=== PATIENT | male | born 1975 | race Caucasian/White ===

== ENCOUNTER 2019-10-09 11:58 | Outpatient (CLI) | payer BC, SELFPAY ==
[2019-10-09 12:37] LABS: Creatinine Urine 46.56 mg/dL (40-278); MALB Creatinine Ratio 11.3 mg/g (0-30); Microalbumin Urine Random 5.3 mg/L
[2019-10-09 13:26] LABS: Alanine Aminotransferase 39 U/L (16-63); Alkaline Phosphatase 66 U/L (46-116); Anion Gap 11.9 mmol/L (7-16); Aspartate Amino Transferase 17 U/L (15-37); Bilirubin,Total 0.4 mg/dL (0.00-1.00); Blood Urea Nitrogen 13 mg/dL (7-18); Calcium 9.3 mg/dL (8.5-10.1); Carbon Dioxide 30 mmol/L (21-32); Chloride 101 mmol/L (98-108); Estimated Glomerular Filt Rate > 60; Glucose 322 mg/dL (70-99); Osmolality Calculated 298 mOsm/kg (285-295); Potassium 4.9 mmol/L (3.5-5.1); Sodium 138 mmol/L (136-145); Total Protein 7.3 g/dL (6.4-8.2)
[2019-10-09 14:08] LABS: Hemoglobin A1C 8.7 % (<5.7)
== END 2019-10-09 11:59 | disposition home or self-care (01) ==
LOC: CHSLAB 12:01
PROVIDERS: PCP Nurse Practitioner Family; Visit Provider Nurse Practitioner Family
DX: E11.9 Type 2 diabetes mellitus without complications (principal)
CPT/HCPCS: 36415; 80053; 82043; 83036

== ENCOUNTER 2021-12-28 13:41 | Outpatient (CLI) | payer OTHER, SELFPAY ==
[2021-12-28 13:58] LABS: Basophils Absolute Auto 0.06 K/mm3 (0.00-0.10); Basophils Percent Auto 0.6 % (0.0-1.0); Eosinophils Absolute Auto 0.26 K/mm3 (0.02-0.50); Eosinophils Percent Auto 2.7 % (1.0-6.0); Hematocrit 44.3 % (40.0-54.0); Hemoglobin 14.5 g/dL (14.0-18.0); Immature Granulocyte Absolute 0.03 K/mm3 (0.00-0.00); Immature Granulocyte Percent A 0.3 % (0.0-0.0); Lymphocytes Absolute Auto 1.71 K/mm3 (1.10-4.50); Lymphocytes Percent Auto 17.5 % (18.0-42.0); Mean Corpuscular HGB Conc 32.7 g/dL (32.0-36.0); Mean Corpuscular Hemoglobin 27.8 pg (27.0-31.0); Mean Platelet Volume 9.7 fl (8.7-11.0); Monocytes Absolute Auto 0.75 K/mm3 (0.10-0.90); Monocytes Percent Auto 7.7 % (2.0-11.0); Neutrophils Percent Auto 71.2 % (50.0-70.0); Platelet Count Result 330 K/mm3 (150-420); Red Blood Count 5.21 M/mm3 (4.70-6.10); Red Cell Distribution Width 13.2 % (11.6-14.4); White Blood Count 9.8 K/mm3 (4.8-10.8)
[2021-12-28 14:06] LABS: MALB Creatinine Ratio 30.8 mg/g (0-30); Microalbumin Urine Random 27.8 mg/L
[2021-12-28 14:12] LABS: Alanine Aminotransferase 16 U/L (16-63); Alkaline Phosphatase 94 U/L (46-116); Anion Gap 8 mmol/L (8-16); Aspartate Amino Transferase < 10 U/L (15-37); Bilirubin,Total 0.8 mg/dL (0.00-1.00); Blood Urea Nitrogen 13 mg/dL (7-18); Calcium 8.9 mg/dL (8.5-10.1); Carbon Dioxide 29 mmol/L (21-32); Chloride 100 mmol/L (98-108); Cholesterol 217 mg/dL (0-200); Estimated Glomerular Filt Rate > 60; Glucose 328 mg/dL (70-99); HDL Direct 48 mg/dL (40-60); LDL Cholesterol Calculated 152 mg/dL (<130); Osmolality Calculated 297 mOsm/kg (285-295); Sodium 137 mmol/L (136-145); Total Protein 7.8 g/dL (6.4-8.2); Triglycerides 86 mg/dL (0-150)
== END 2021-12-28 13:42 | disposition home or self-care (01) ==
LOC: CHSLAB 13:44
PROVIDERS: PCP Nurse Practitioner Family; Visit Provider Nurse Practitioner Family
DX: E11.9 Type 2 diabetes mellitus without complications (principal)
CPT/HCPCS: 36415; 80053; 80061; 82043; 85025

== ENCOUNTER 2023-06-30 13:42 | Emergency (ER) | payer OTHER, SELFPAY ==
--- NOTE | ~2023-06-30 | XR_ITS ---
EXAMINATION: XR chest 1V portable DATE: 06/30/2023 14:36 INDICATION: Fever TECHNIQUE: frontal view of the chest was obtained. COMPARISON: None FINDINGS: The lungs are clear with no focal airspace opacities, pulmonary edema, pleural effusion or pneumothor ax. The cardiomediastinal silhouette is normal. Visualized bones and soft tissues are unremarkable. IMPRESSION: 1. Normal chest radiograph. Reviewed, dictated and finalized at location A. LITION WORKER IMPRESSION: 1. Normal chest radiograph.
[2023-06-30 13:52] VITALS: BP 130/75; PULSE 98; RESP 18; TEMP 36.5
[2023-06-30 14:29] LABS: Basophils Absolute Auto 0.08 K/mm3 (0.00-0.10); Basophils Percent Auto 0.8 % (0.0-1.0); Eosinophils Absolute Auto 0.41 K/mm3 (0.02-0.50); Eosinophils Percent Auto 4.1 % (1.0-6.0); Hematocrit 44.8 % (40.0-54.0); Hemoglobin 14.8 g/dL (14.0-18.0); Immature Granulocyte Absolute 0.05 K/mm3 (0.00-0.00); Immature Granulocyte Percent A 0.5 % (0.0-0.0); Lymphocytes Absolute Auto 1.35 K/mm3 (1.10-4.50); Lymphocytes Percent Auto 13.3 % (18.0-42.0); Mean Corpuscular Hemoglobin 27.7 pg (27.0-31.0); Mean Corpuscular Volume 83.9 fL (78.0-102.0); Mean Platelet Volume 9.5 fl (8.7-11.0); Monocytes Absolute Auto 0.63 K/mm3 (0.10-0.90); Monocytes Percent Auto 6.2 % (2.0-11.0); Neutrophils Absolute Auto 7.6 K/mm3 (1.7-7.2); Neutrophils Percent Auto 75.1 % (50.0-70.0); Platelet Count Result 290 K/mm3 (150-420); Red Blood Count 5.34 M/mm3 (4.70-6.10); Red Cell Distribution Width 13.2 % (11.6-14.4); White Blood Count 10.1 K/mm3 (4.8-10.8)
[2023-06-30 14:37] LABS: Glucose Point of Care 297 mg/dl (65-105)
[2023-06-30 14:46] LABS: Alanine Aminotransferase 17 U/L (16-63); Albumin Level 3.5 g/dL (3.4-5.0); Alkaline Phosphatase 74 U/L (46-116); Anion Gap 9 mmol/L (8-16); Aspartate Amino Transferase 10 U/L (15-37); Blood Urea Nitrogen 17 mg/dL (7-18); Calcium 8.5 mg/dL (8.5-10.1); Carbon Dioxide 28 mmol/L (21-32); Chloride 101 mmol/L (98-108); Estimated Glomerular Filt Rate 57; Glucose 295 mg/dL (70-99); Osmolality Calculated 298 mOsm/kg (285-295); Potassium 3.9 mmol/L (3.5-5.1); Sodium 138 mmol/L (136-145); Total Protein 7.5 g/dL (6.4-8.2)
[2023-06-30 15:00] VITALS: BP 120/75; PULSE 87; RESP 18; TEMP 36.7; O2SAT 100
[2023-06-30 15:05] LABS: SARS-CoV-2 RNA PCR Negative (Negative)
[2023-06-30 15:09] LABS: Influenza A QL RT-PCR Negative (Negative); Influenza B QL RT-PCR Negative (Negative); RSV RNA, RT-PCR Negative (Negative)
--- NOTE | 2023-06-30 15:10 | ED.FEVER ---
HPI - Fever General Chief Complaint: Fever Stated Complaint: cough Time Seen by Provider: 06/30/23 13:53 Source: patient and family Mode of arrival: ambulatory Limitations: no limitations History of Present Illness HPI Narrative: this is a 48-year-old male presents with what he describes as fevers subjective has not checked with a thermometer there is no shortness of breath no chest pain or abdominal pain no cough or congestion no chest pain no dysuria no flank pain no hematuria. Has no nausea vomiting no diarrhea constipation. Pertinent past history: diabetes Onset (ago): hour(s) Related Data Allergies Allergy/AdvReac Type Severity Reaction Status Date / Time No Known Allergies Allergy Verified 06/30/23 14:05 Review of Systems Review of Systems: All systems reviewed & are unremarkable except as noted in HPI and below PMFSH Past Medical History Medical History (Updated 06/30/23 @ 15:13 by Tony Nava MD) BMI 28.0-28.9,adult Depression Type 2 diabetes mellitus Family History Family History Father Diabetes mellitus Father Family history of type 2 diabetes mellitus Father Family history of type 2 diabetes mellitus Social History Social History Smoking packs per day: 1 Smoking cigarettes per day: 20.0 Years smoked: 19 Smoking pack-years: 19.00 Smoking status: Former smoker Tobacco type: cigarettes Smoking end date: 05/16/11 Alcohol intake: never Substance use: never Substance use type: does not use Lack of Transportation: YES Lack of Food: Often True Current Housing: I Have Housing Concerned About Future Housing: No Difficulty Paying Gas/Electric Bills: YES Difficulty Paying for Meds: YES Currently Unemployed: YES Education: Trade/Vocational Certificate Difficulty w/ Childcare or Family Care: No Living arrangements: with family Exam Const: General: healthy appearing, no acute distress and alert Nutritional Appearance: well nourished HENMT: Head: normal to inspection Eyes: Conjunctivae: conjunctivae normal Neck: Neck: normal visual inspection Chest: Chest palpation & inspection: normal inspection of the chest Resp: Effort & Inspection: normal respiratory effort Auscultation: clear to auscultation bilaterally Cardio: Rate: regular rate Rhythm: regular rhythm GI: GI Palp: Yes Soft to palpation : General: Yes bladder normal to palpation Skin: General skin exam: normal color Rashes: no rashes Neuro: General: patient oriented x3 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 Vital Signs Vital signs: Vital Signs Temperature 36.5 C 06/30/23 13:52 Pulse Rate 98 06/30/23 13:52 Respiratory Rate 18 06/30/23 13:52 Blood Pressure 130/75 06/30/23 13:52 Oxygen Delivery Room Air 06/30/23 13:52 Temperature 36.7 C 06/30/23 15:00 Pulse Rate 87 06/30/23 15:00 Respiratory Rate 18 06/30/23 15:00 Blood Pressure 120/75 06/30/23 15:00 Pulse Oximetry 100 06/30/23 15:00 Oxygen Delivery Room Air 06/30/23 15:00 MDM - Fever Lab Data 06/30/23 14:25 06/30/23 14:25 Labs: Lab Results 06/30/23 06/30/23 Range/Units 14:25 14:34 WBC 10.1 (4.8-10.8) K/mm3 RBC 5.34 (4.70-6.10) M/mm3 Hgb 14.8 (14.0-18.0) g/dL Hct 44.8 (40.0-54.0) % MCV 83.9 (78.0-102.0) fL MCH 27.7 (27.0-31.0) pg MCHC 33.0 (32.0-36.0) g/dL RDW 13.2 (11.6-14.4) % Plt Count 290 (150-420) K/mm3 MPV 9.5 (8.7-11.0) fl Immature Gran % (Auto) 0.5 H (0.0-0.0) % Neut % (Auto) 75.1 H (50.0-70.0) % Lymph % (Auto) 13.3 L (18.0-42.0) % [place] % (Auto) 6.2 (2.0-11.0) % Eos % (Auto) 4.1
== END 2023-06-30 15:22 | disposition home or self-care (01) ==
PROVIDERS: Emergency Provider Emergency Medicine; PCP Nurse Practitioner Family
DX: B34.9 Viral infection, unspecified (principal); E11.9 Type 2 diabetes mellitus without complications; Z87.891 Personal history of nicotine dependence; Z20.822 Contact with and (suspected) exposure to COVID-19
CPT/HCPCS: 36415; 71045; 80053; 82948; 85025; 87637; 99283